=== PATIENT | female | born 1985 | race African-American/Black ===

== ENCOUNTER 2023-09-25 14:32 | Inpatient (IN) | payer OTHER, SELFPAY ==
[2023-09-25 15:12] VITALS: BP 131/74; BMI 33.8
[2023-09-25 15:37] LABS: Hematocrit 35.1 % (37.0-47.0); Hemoglobin 11.7 g/dL (12.0-16.0); Mean Corp Hgb Conc. 33.3 g/dL (33.0-37.0); Mean Corpuscular Hgb 28.4 pg (27.0-31.0); Mean Corpuscular Volume 85.2 fL (81.0-99.0); Mean Platelet Volume 10.4 fL (7.4-10.4); Platelet Count 174 10^3/uL (130-400); Red Blood Cell Count 4.12 10^6/uL (4.20-5.40); Red Cell Dist. Width 13.5 % (11.5-14.5); White Blood Cell Count 5.3 10^3/uL (4.8-10.8)
[2023-09-25 15:38] LABS: PT 13.2 Sec (11.4-14.6)
[2023-09-25 15:39] LABS: APTT 27.4 Sec (23.4-35.0)
[2023-09-25 15:41] LABS: Urine Albumin Negative (Neg - Trace); Urine Bilirubin Negative (Negative); Urine Character Clear (Clear); Urine Color Straw; Urine Glucose Trace (Negative); Urine Ketone Negative (Negative); Urine Leukocyte Negative (Negative); Urine Nitrite Negative (Negative); Urine Occult Blood Negative (Negative); Urine Urobilinogen Negative (Neg - 1+)
[2023-09-25 15:44] LABS: ALT (SGPT) 20 U/L (0-35); AST (SGOT) 25 U/L (14-36); Albumin 3.9 g/dl (3.5-5.0); Alkaline Phosphatase 131 U/L (38-126); Blood Urea Nitrogen 6 mg/dl (7-17); Calcium 9.8 mg/dl (8.4-10.2); Carbon Dioxide 21 mmol/L (22-30); Chloride 106 mmol/L (98-107); Estimated Creatinine Clearance 124 ml/min; Glucose 88 mg/dl (70-99); Potassium 4.4 mmol/L (3.5-5.1); Sodium 132 mmol/L (135-145); Total Bilirubin 0.3 mg/dl (0.2-1.3); Total Protein 7.2 g/dl (6.3-8.2); Uric Acid 2.9 mg/dl (2.5-6.2); eGFR > 60.00
[2023-09-25 16:11] LABS: Protein/creatinine Ratio 1.5; Urine Protein 14 mg/dl
[2023-09-25] MEDS: CYTOTEC 25 MICROGRAM PO ×2 (19:13→23:24)
[2023-09-25] MEDS: LR 1000 IV (23:25)
[2023-09-26] MEDS: BENADRYL 50 MG IV (00:06)
[2023-09-26] MEDS: PITOCIN 30 UNITS/NSS 500 ML IV ×2 (03:43→17:16)
[2023-09-26] MEDS: LR 1000 IV ×3 (03:50→14:35)
[2023-09-26] MEDS: CYTOTEC PO (06:49)
[2023-09-26] MEDS: SUBLIMAZE 100 MCG EPIDURAL (08:26)
[2023-09-26] MEDS: FENTANYL/BUPIVACAINE 100 EPIDURAL ×2 (08:35→15:37)
[2023-09-26] MEDS: PROCARDIA XL (EXTENDED RELEASE) 30 MG PO (19:10)
[2023-09-27 04:45] LABS: Hematocrit 33.9 % (37.0-47.0); Hemoglobin 11.9 g/dL (12.0-16.0)
[2023-09-27] MEDS: MOTRIN 600 MG PO ×2 (10:31→18:16)
[2023-09-27 17:19] LABS: Syphilis/T. pallidum Ab Reflex Negative (Negative)
[2023-09-27] MEDS: PROCARDIA XL (EXTENDED RELEASE) 30 MG PO (19:38)
[2023-09-28] MEDS: MOTRIN 600 MG PO ×2 (00:34→08:55)
== END 2023-09-28 14:00 | disposition home or self-care (01) | DRG 807 ==
LOC: LDRP 14:32
PROVIDERS: Obstetrics & Gynecology; ADMITTING PHYSICIAN Obstetrics & Gynecology; PRIMARYCARE PHYSICIAN Obstetrics & Gynecology
PROC: 3E0DXGC Introduction of Other Therapeutic Substance into Mouth and Pharynx, External Approach (ICD-10-PCS; 2023-09-25)
PROC: 10E0XZZ Delivery of Products of Conception, External Approach (ICD-10-PCS; 2023-09-26)
PROC: 3E033VJ Introduction of Other Hormone into Peripheral Vein, Percutaneous Approach (ICD-10-PCS; 2023-09-26)
PROC: 10907ZC Drainage of Amniotic Fluid, Therapeutic from Products of Conception, Via Natural or Artificial Opening (ICD-10-PCS; 2023-09-26)
DX: O14.04 Mild to moderate pre-eclampsia, complicating childbirth (principal); Z37.0 Single live birth; Z3A.37 37 weeks gestation of pregnancy; O69.1XX0 Labor and delivery complicated by cord around neck, with compression, not applicable or unspecified; Z88.1 Allergy status to other antibiotic agents; G43.909 Migraine, unspecified, not intractable, without status migrainosus; O99.344 Other mental disorders complicating childbirth; F41.9 Anxiety disorder, unspecified; O99.214 Obesity complicating childbirth
CPT/HCPCS: 88307; 80053; 81003; 82570; 84156; 84550; 85014; 85018; 85027; 85610; 85730; 86780; 86850; 86900; 86901